=== PATIENT | male | born 1950 | race African-American/Black ===

== ENCOUNTER 2024-01-11 20:07 | Emergency (ER) | payer BC, OTHER ==
[~2024-01-11] VITALS: Ht 175.3 cm; Wt 56.7 kg
--- NOTE | 2024-01-11 20:50 | NUR ---
[id number] CC L ARM PAIN AFTER PLACEMENT OF DIALYSIS PORT
[2024-01-11 22:44] LABS: BASOPHILS # (AUTO) 0.1 K/uL (0.0-0.2); BASOPHILS % (AUTO) 0.3 % (0.0-2.0); EOSINOPHILS # (AUTO) 0.2 K/uL (0.0-0.7); EOSINOPHILS % (AUTO) 1.2 % (0.0-6.0); HEMATOCRIT 36 % (39-51); LYMPHOCYTES # (AUTO) 0.8 K/uL (0.8-4.8); LYMPHOCYTES % (AUTO) 4.8 % (20.0-44.0); MEAN CORPUSCULAR HEMOGLOBIN 28 PG (26.0-33.0); MEAN CORPUSCULAR HGB CONC 30 g/dl (31.0-36.0); MEAN CORPUSCULAR VOLUME 91 fL (80-96); MONOCYTES # (AUTO) 0.6 K/uL (0.1-1.30); MONOCYTES % (AUTO) 3.7 % (2.0-12.0); NEUTROPHILS # (AUTO) 14.3 K/uL (1.8-8.9); PLATELET COUNT (AUTO) 274 K/uL (150-450); RED BLOOD CELL COUNT(AUTO) 3.99 MIL/uL (4.5-6.0); RED CELL DISTRIBUTION WIDTH 20.3 % (11.5-15.0); WHITE BLOOD COUNT (AUTO) 15.9 K/uL (4.3-11.0)
[2024-01-11] MEDS ORDERED: HYDROCODONE/APAP 5/325MG TABLET ONE (22:50)
[2024-01-11] MEDS: HYDROCODONE/APAP 5/325MG TABLET PO ONE (22:53)
[2024-01-11 22:58] LABS: INR 0.98 (0.91-1.10); PROTHROMBIN TIME 10.4 SECS (9.2-11.1)
[2024-01-11 23:07] LABS: CALCIUM, SERUM 7.7 mg/dL (8.5-10.1); CARBON DIOXIDE 24 mmol/L (21-32); CHLORIDE 101 mmol/L (98-107); GLUCOSE 182 mg/dL (74-106); POTASSIUM 4.9 mmol/L (3.5-5.1); SODIUM SERUM 137 mmol/L (136-145); UREA NITROGEN, BLOOD 38 mg/dL (7-18)
[2024-01-11 23:12] LABS: ALANINE AMINOTRANSFERASE 16 U/L (12-78); ALKALINE PHOSPHATASE 66 U/L (46-116); ASPARTATE AMINOTRANSFERASE 62 U/L (15-37); BILIRUBIN,TOTAL 0.3 mg/dL (0.2-1.0); TOTAL PROTEIN, SERUM 6.9 g/dL (6.4-8.2)
[2024-01-11 23:27] LABS: CREATININE 7.9 mg/dL (0.6-1.3)
--- NOTE | 2024-01-11 23:27 | NUR ---
CREATININE 7.9
[2024-01-12] LABS: LACTIC ACID 2.7 mmol/L (0.4-2.0)
--- NOTE | 2024-01-12 | NUR ---
LACTIC ACID 2.7
[2024-01-12] MEDS ORDERED: LEVOFLOXACIN 500 MG /D5W 100ML 100 ML IV ONE (00:16)
[2024-01-12] MEDS: LEVOFLOXACIN 500 MG /D5W 100ML 500 MG/100 ML PIGGYBACK IV ONE (00:39)
[2024-01-12] MEDS ORDERED: MORPHINE SULFATE INJ 2 MG/ML DISP.SYRIN ONE (01:03)
[2024-01-12] MEDS: MORPHINE SULFATE INJ 2 MG/ML DISP.SYRIN IV ONE (01:06)
[2024-01-12 04:55] LABS: BILIRUBIN,DIRECT 0.1 mg/dL (0.0-0.2)
[2024-01-12 05:01] LABS: LACTIC ACID REFLEX 1.8 mmol/L (0.4-1.9)
--- NOTE | 2024-01-12 05:42 | NUR ---
pt did not signed the discharge paper. aware.
[2024-01-12 05:43] VITALS: BP 135/85; TEMP 98.9; O2SAT 98
== END 2024-01-12 05:43 | disposition home or self-care (01) ==
LOC: ER 20:09 → EDBD 20:09 → ER 01-12 05:43
DX: L76.22 Postprocedural hemorrhage of skin and subcutaneous tissue following other procedure (principal); A02.0 Salmonella enteritis; M79.602 Pain in left arm; I12.0 Hypertensive chronic kidney disease with stage 5 chronic kidney disease or end stage renal disease; N18.6 End stage renal disease; Z99.2 Dependence on renal dialysis; Z88.0 Allergy status to penicillin; Z60.2 Problems related to living alone; Y84.8 Other medical procedures as the cause of abnormal reaction of the patient, or of later complication, without mention of misadventure at the time of the procedure; Y82.8 Other medical devices associated with adverse incidents
CPT/HCPCS: 99284; 71045; 73060; 85025; 83605 ×2; 85610; 36415 ×2; 80053; 96365; 96375; 82248; 87040; 80320; J1956; J2270; G0480